=== PATIENT | female | born 1960 | race Caucasian/White ===

== ENCOUNTER 2020-09-09 10:06 | Emergency (ER) | payer MEDICARE, SELFPAY ==
--- NOTE | ~2020-09-09 | XR_ITS ---
EXAMINATION: XR hip RT min 3V w AP pelvis EXAM DATE: 09/09/2020 10:56 INDICATION: 2 falls on right hip, with persistent pain. Initial encounter. TECHNIQUE: Right hip frontal, 'frog leg' projections for interpretation. Frontal projection pelvis. There is no prior study for comparison. FINDINGS: Smooth right hip femoral head contour, no radiographic evidence of avascular necrosis. The re is mild bilateral hip and sacroiliac joint primary osteoarthritis. There are no acute hip or pelvi c fractures or dislocations identified. There is no subcutaneous gas. The soft tissue is unremarkab le. There are no radiopaque foreign bodies. IMPRESSION: 1. Pelvis, right hip exam without acute osseous findings. 2. Mild osteoarthritis. Reviewed, dictated and finalized at location A. [employer]
[2020-09-09 10:24] VITALS: BP 128/58; PULSE 63; RESP 20; TEMP 36.9; O2SAT 97
--- NOTE | 2020-09-09 11:24 | ED.LOWEXIN ---
HPI - Extremity Injury (Lower) General Chief Complaint: Extremity Injury, Lower Stated Complaint: right hip pain Source: patient and RN notes reviewed Limitations: no limitations History of Present Illness HPI Narrative: The patient, who is on several meds, presents with right hip pain. Patient states she slipped and fell twice in the last half month, striking her right hip. The first time she developed a hematoma [on antiplatelets] that has had some residual, dependent swelling but essentially improved. Then she tripped again 1/2-week ago; pain is worse with motion on hip internal rotation and abduction, better at rest, located lateral hip. No bleeding, deformity; POC/ screening x-ray is noncontributory except for age-related degenerative changes. Patient advised to go to higher facility for scanning for possible occult injury if not improved with therapy Related Data Home Medications Medication Instructions Recorded Confirmed Lamictal 09/09/20 Vibrid 09/09/20 amlodipine 10 mg PO DAILY 09/09/20 09/09/20 aspirin [Aspir-Low] 81 mg PO DAILY 09/09/20 09/09/20 atorvastatin [Lipitor] 40 mg PO DAILY 09/09/20 09/09/20 clonidine 09/09/20 Allergies Allergy/AdvReac Type Severity Reaction Status Date / Time No Known Allergies Allergy Verified 09/09/20 10:31 Review of Systems Review of Systems: Narrative: General/Constitutional: No weight loss,fever Eyes: N0: Redness,discharge Ears/Nose/Throat: No: Epistaxis,ear discharge Respiratory: Denies: Hemoptysis Gastrointestinal: No Vomiting, Bleeding-rectal Skin: No Lumps, eruption Neurologic: No Focal Weakness,Sz Hematologic: Denies: Petechiae/Purpura Psychiatric: No: Suicida ideationl All Other Systems: Reviewed and Negative PMFSH Comments At time of signature, agree with nursing past medical, surgical, social and family history. There is no relevant family history pertinent to the presenting complaint Exam Narrative: Exam Narrative: General Appearance: Obese/ Well nourished, No distress, antalgic gait EYE: PERRLA, EOMI, Conjunctiva clear Ears: External ear normal, Auditory canal normal Nose: Normal nose, Nares clear Mouth/Throat: Normal appearing, Normal lips Supple Respiratory: Airway patent, No respiratory distress Musculoskeletal: Normal strength (mostly intact, limited flexion/extension by pain), Tenderness ( laterally gr trochanter, with mild decreased ROM), scant swelling/ resolving hematoma distal gluteal, Skin: Warm, Dry, Normal color,midline back & sciatic notch nontenderr Neurological: A&O x3, Normal affect Course Course Emergency Course: Films visualized, interpreted by radiologist, agree, normal see report Vital Signs Vital signs: Vital Signs Temperature 98.4 F 09/09/20 10:24 Pulse Rate 63 09/09/20 10:24 Respiratory Rate 20 09/09/20 10:24 Blood Pressure 128/58 L 09/09/20 10:24 Pulse Oximetry 97 09/09/20 10:24 Temperature 98.4 F 09/09/20 10:24 Pulse Rate 63 09/09/20 10:24 Respiratory Rate 20 09/09/20 10:24 Blood Pressure 128/58 L 09/09/20 10:24 Pulse Oximetry 97 09/09/20 10:24 Discharge Plan Discharge Clinical Impression: Bursitis of right hip Qualifiers: Hip bursitis location: trochanteric bursitis Qualified Code(s): M70.61 - Trochanteric bursitis, right hip Hip osteoarthritis Qualifiers: Osteoarthritis type: primary Laterality: right Qualified Code(s): M16.11 - Unilateral primary osteoarthritis, right hip Patient Disposition: Home, Self-Care Condition: Stable Instructions: Hip Bursitis (ED) Additional Instructions: Advised to go to higher-level care facility to higher level testing/ scanning if not improved , because for early diagnosis of serious problems [occult hip fracture, etc.], clear specific symptoms do not develope until later Prescriptions: New prednisone 20 mg tablet 60 mg PO DAILY Qty: 6 RF: 0 tramadol 50 mg tablet 50 mg PO TID PRN (Reason: pain)
== END 2020-09-09 11:37 | disposition home or self-care (01) ==
PROVIDERS: Emergency Provider Emergency Medicine
DX: M70.61 Trochanteric bursitis, right hip (principal); M16.11 Unilateral primary osteoarthritis, right hip; Z79.82 Long term (current) use of aspirin
CPT/HCPCS: 73502; 99213; G0463